=== PATIENT | male | born 1980 | race Caucasian/White ===

== ENCOUNTER 2022-08-02 09:00 | Inpatient (IN) | payer OTHER ==
[~2022-08-02] VITALS: Ht 177.8 cm; Wt 154.2 kg
[2022-08-08] MEDS ORDERED: PANTOPRAZOLE SO40 MG (08:15)
== END 2022-08-10 13:44 | disposition home or self-care (01) | DRG 330 ==
LOC: O/R 08-08 05:00 → SURH 08-08 07:00 → SURG 08-08 11:31
PROVIDERS: ADMIT Colon & Rectal Surgery; ATTEND Colon & Rectal Surgery
PROC: 0DBP4ZZ Excision of Rectum, Percutaneous Endoscopic Approach (ICD-10-PCS; 2022-08-08)
PROC: 07BB4ZZ Excision of Mesenteric Lymphatic, Percutaneous Endoscopic Approach (ICD-10-PCS; 2022-08-08)
PROC: 0DJD8ZZ Inspection of Lower Intestinal Tract, Via Natural or Artificial Opening Endoscopic (ICD-10-PCS; 2022-08-08)
PROC: 4A12X4Z Monitoring of Cardiac Electrical Activity, External Approach (ICD-10-PCS; 2022-08-08)
PROC: 3E0F7SF Introduction of Other Gas into Respiratory Tract, Via Natural or Artificial Opening (ICD-10-PCS; 2022-08-08)
PROC: 3E0F7GC Introduction of Other Therapeutic Substance into Respiratory Tract, Via Natural or Artificial Opening (ICD-10-PCS; 2022-08-08)
PROC: 0DTN4ZZ Resection of Sigmoid Colon, Percutaneous Endoscopic Approach (ICD-10-PCS; principal; 2022-08-08 07:00)
DX: C19 Malignant neoplasm of rectosigmoid junction (principal); E87.29 Other acidosis; K92.1 Melena; R59.0 Localized enlarged lymph nodes; G47.30 Sleep apnea, unspecified; I10 Essential (primary) hypertension; Z85.038 Personal history of other malignant neoplasm of large intestine

== ENCOUNTER 2024-10-09 09:40 | Emergency (ER) | payer OTHER ==
[~2024-10-09] VITALS: Ht 177.8 cm; Wt 129.3 kg
[~2024-10-09 09:40] MED LIST: PANTOPRAZOLE SO40 MG
[2024-10-09 09:50] VITALS: BP 120/79; O2SAT 99
[2024-10-09] MEDS ORDERED: TAMS0.4C PO (09:54)
[2024-10-09 10:18] LABS: HEMATOCRIT 44.7 % (39.0-48.0); HEMOGLOBIN 15.6 g/dL (13-16.00); MEAN CELL VOLUME 82.9 fL (80.0-100.00); MEAN CORPUSCULAR HEMOGLOBIN 28.9 pg (27.00-32.0); MEAN CORPUSCULAR HGB CONC 34.8 g/dl (32.0-36.0); PLATELET COUNT 299 K/uL (150-450); RED CELL DISTRIBUTION WIDTH 14.1 % (11.5-14.5)
[2024-10-09 10:50] LABS: CREATININE SERUM 1.09 mg/dL (0.70-1.30); GFR 73.15; POTASSIUM 3.44 mEq/L (3.5-5.1)
[2024-10-09 11:34] LABS: PH,URINE 5.5 (5.0-8.0); URINE APPEARANCE Clear; URINE BILIRRUBIN Small (NEGATIVE); URINE BLOOD Negative; URINE COLOR Dark Yellow; URINE GLUCOSE Negative (NEGATIVE); URINE KETONE Trace (NEGATIVE); URINE LEUKOCYTE Negative; URINE NITRATE Negative; URINE PROTEIN Trace (NEGATIVE)
[2024-10-09 11:37] LABS: URINE BACTERIA 13.4 uL (0.0-1933); URINE EPITHELIAL CELLS 5.8 uL (0.0-38.8); URINE RBC 11.3 uL (0.0-20.8); URINE WBC 4.2 uL (0.0-23.2)
[2024-10-09 11:38] LABS: URINE CAST 0.14 uL (0.0-1.40)
[2024-10-09] MEDS ORDERED: KETOROLAC TROMETHAMINE 60 MG VIAL IM ONE ×2 (14:42→14:45)
== END 2024-10-09 14:49 | disposition home or self-care (01) ==
LOC: ER 09:40
PROVIDERS: Emergency Medicine
DX: N20.0 Calculus of kidney (principal); K76.0 Fatty (change of) liver, not elsewhere classified; Z85.038 Personal history of other malignant neoplasm of large intestine; Z85.46 Personal history of malignant neoplasm of prostate